=== PATIENT | female | born 1945 | race Caucasian/White ===

== ENCOUNTER 2022-07-23 12:13 | Inpatient (IN) | payer OTHER ==
[~2022-07-23] VITALS: Ht 167.6 cm; Wt 101.7 kg
[2022-07-23 12:16] VITALS: BP_SYST 187
[2022-07-23 13:56] LABS: BASOPHILS % (AUTO) 0.5 % (0.0-2.0); EOSINOPHILS # (AUTO) 0.1 K/uL (0.0-0.4); EOSINOPHILS % (AUTO) 2.3 % (0.0-4.0); HEMATOCRIT 35.9 % (36-48); HEMOGLOBIN 12.3 g/dL (12.0-16.0); LYMPHOCYTES # (AUTO) 1.3 K/uL (1.0-5.5); LYMPHOCYTES % (AUTO) 19.9 % (20.5-51.5); MEAN CORPUSCULAR HEMOGLOBIN 32 pg (27-31); MEAN CORPUSCULAR HGB CONC 34 % (32-36); MEAN CORPUSCULAR VOLUME 93 fL (79.0-98.0); MONOCYTES # (AUTO) 0.5 K/uL (0.0-1.0); NEUTROPHILS # (AUTO) 4.4 K/uL (1.8-7.7); NEUTROPHILS % (AUTO) 69.3 % (40.0-70.0); PLATELET COUNT (AUTO) 143 K/uL (130-430); RED BLOOD CELL COUNT(AUTO) 3.84 MIL/uL (4.2-6.2); RED CELL DISTRIBUTION WIDTH 14.1 % (9.0-15.0); WHITE BLOOD COUNT (AUTO) 6.4 K/uL (4.8-10.8)
[2022-07-23 14:08] LABS: ANION GAP 4 (5-15); CALCIUM 8.6 mg/dL (8.4-11.0); CHLORIDE 106 mmol/L (98-107); CREATININE 0.84 mg/dL (0.55-1.30); GLUCOSE 87 mg/dL (70-99); UREA NITROGEN, BLOOD 14 mg/dL (8-21)
[2022-07-23 14:15] LABS: ALANINE AMINOTRANSFERASE 58 U/L (12-78); ALBUMIN 3.3 g/dL (3.4-4.8); ASPARTATE AMINOTRANSFERASE 31 U/L (10-37); TOTAL BILIRUBIN 0.9 mg/dL (0.0-1.0)
[2022-07-23] MEDS ORDERED: ENALAPRILAT DIHYDRATE 1.25 MG/ML VIAL IVP ONE (16:30)
[2022-07-23] MEDS ORDERED: NITROGLYCERIN 1 INCH (GM) OINT. TP ONE (16:45)
[2022-07-23] MEDS ORDERED: METO-540 PO (17:02)
[2022-07-23] MEDS ORDERED: LEVO125T8 PO (17:02)
[2022-07-23] MEDS ORDERED: POTA-88 PO (17:02)
[2022-07-23] MEDS ORDERED: SIMV-43 PO (17:02)
[2022-07-23] MEDS ORDERED: BUME2TAB7 PO (17:02)
[2022-07-23] MEDS ORDERED: KETOROLAC TROMETHAMINE 30 MG VIAL IVP ONE (17:30)
[2022-07-23 18:51] VITALS: BP_SYST 155
[2022-07-23 20:00] VITALS: BP_SYST 173
[2022-07-23] MEDS: METOPROLOL TARTRATE 25 MG TABLET PO SCH (20:41)
[2022-07-23] MEDS ORDERED: MORPHINE 2 MG/ML INJ. SYRINGE IVP PRN (23:30)
[2022-07-24] VITALS: BP_SYST 153
[2022-07-24] MEDS ORDERED: hydrALAZINE HCL 20 MG/ML VIAL IVP PRN (01:45)
[2022-07-24] MEDS: LORazepam 2 MG/ML VIAL IVP PRN ×2 (02:00→21:26)
[2022-07-24 08:00] VITALS: BP_SYST 136
[2022-07-24] MEDS: MORPHINE 2 MG/ML INJ. SYRINGE IVP PRN ×2 (09:50→15:51)
[2022-07-24] MEDS: amLODIPine BESYLATE 5 MG TABLET PO SCH (09:57)
[2022-07-24] MEDS: METOPROLOL TARTRATE 25 MG TABLET PO SCH ×2 (09:57→21:22)
[2022-07-24 11:23] VITALS: BP_SYST 127
[2022-07-24] MEDS ORDERED: MELOXICAM 7.5 MG TABLET PO ONE (12:30)
[2022-07-24] MEDS: CYCLOBENZAPRINE HCL 10 MG TABLET (FLEXERIL) PO SCH ×2 (15:49→21:19)
[2022-07-24 15:53] VITALS: BP_SYST 136
[2022-07-24 20:00] VITALS: BP_SYST 169
[2022-07-24] MEDS ORDERED: SIMVASTATIN 20 MG TABLET PO SCH (21:00)
[2022-07-24] MEDS: BUMETANIDE 1 MG TABLET PO SCH (21:23)
[2022-07-25] VITALS: BP_SYST 157
[2022-07-25 08:00] VITALS: BP_SYST 156
[2022-07-25] MEDS ORDERED: METOPROLOL SUCCINATE 25 MG TAB.SR.24H (TOPROL XL) PO SCH (09:00)
[2022-07-25] MEDS ORDERED: MELOXICAM 7.5 MG TABLET PO SCH (09:00)
[2022-07-25] MEDS ORDERED: LEVOTHYROXINE SODIUM 0.125 MG TABLET PO SCH (09:00)
[2022-07-25] MEDS: amLODIPine BESYLATE 5 MG TABLET PO SCH (09:00)
[2022-07-25] MEDS: METOPROLOL TARTRATE 25 MG TABLET PO SCH (09:01)
[2022-07-25] MEDS: CYCLOBENZAPRINE HCL 10 MG TABLET (FLEXERIL) PO SCH (09:03)
[2022-07-25] MEDS: BUMETANIDE 1 MG TABLET PO SCH (09:04)
[2022-07-25 12:00] VITALS: BP_SYST 150
[2022-07-25] MEDS ORDERED: CYCL10TA25 PO (14:02)
[2022-07-25] MEDS ORDERED: MELO-89 PO (14:02)
[2022-07-25] MEDS ORDERED: AMLO5TAB4 PO (14:02)
[2022-07-25 15:28] VITALS: BP_SYST 159
[2022-07-25 16:00] VITALS: BP_SYST 154
== END 2022-07-25 17:05 | disposition home health service (06) | DRG 558 ==
LOC: SED 12:13 → STU 16:40
PROVIDERS: ADMIT Specialist; ATTEND Specialist
DX: M76.31 Iliotibial band syndrome, right leg (principal); I42.9 Cardiomyopathy, unspecified; E44.1 Mild protein-calorie malnutrition; E78.5 Hyperlipidemia, unspecified; E66.01 Morbid (severe) obesity due to excess calories; Z20.822 Contact with and (suspected) exposure to COVID-19; Z88.1 Allergy status to other antibiotic agents; Z88.0 Allergy status to penicillin; Z88.8 Allergy status to other drugs, medicaments and biological substances; Z79.899 Other long term (current) drug therapy; Z68.36 Body mass index [BMI] 36.0-36.9, adult
CPT/HCPCS: 36415; 71045; 80053; 83880; 84484; 85025; 93005; 96374; 96375; 97116-GP; 97163-GP; 99285; G0378; J0360; J1885; J2060; J2270